=== PATIENT | male | born 1965 | race Caucasian/White ===

== ENCOUNTER 2019-01-17 13:25 | Emergency (ER) | payer OTHER ==
[~2019-01-17] VITALS: Ht 180.3 cm; Wt 90.7 kg
[2019-01-17] MEDS ORDERED: FLOMAX0.4 MG PO (13:35)
[2019-01-17 13:51] LABS: URINE BILIRUBIN NEGATIVE (Negative); URINE BLOOD NEGATIVE (Negative); URINE CLARITY CLEAR; URINE COLOR STRAW; URINE GLUCOSE-RANDOM NEGATIVE (Negative); URINE KETONES NEGATIVE (Negative); URINE LEUKOCYTES-REFLEX NEGATIVE (Negative); URINE NITRITE-REFLEX NEGATIVE (Negative); URINE PROTEIN NEGATIVE (Negative); URINE UROBILINOGEN 0.2 E.U./dl (0.2-1.0)
[2019-01-17] MEDS ORDERED: BACTRIM DS TAB1 EACH PO (14:01)
[2019-01-17 14:05] LABS: CALCIUM 9.2 mg/dL (8.5-10.1)
[2019-01-17 15:13] VITALS: BP 140/89
== END 2019-01-17 15:13 | disposition home or self-care (01) ==
LOC: M.ERS 13:25
PROVIDERS: Emergency Medicine Emergency Medical Services
DX: N40.1 Benign prostatic hyperplasia with lower urinary tract symptoms (principal); R33.9 Retention of urine, unspecified